=== PATIENT | female | born 1980 | race African-American/Black ===

== ENCOUNTER → 2016-04-11 | Day surgery (SDC) | payer OTHER ==
[~2016-04-11] MED LIST: ACETAMINOPHEN; ALBUTEROL17 GM INH; AMOXICILLIN; AMOXICILLIN PO; FLEXERIL10 MG PO; LORTAB 5/500 TA1 TA1 PO; MEDROL DOSEPAK4 MG DOB; MULTIPLE VITAMI1 T11 PO; NAPROSYN500 MG PO; NEO/POLYMYXIN/H10 ML; PAXIL PO; PRENATAL MULITV1 TAB; PRENATAL MULTIV1 TA1; RELACORE; ROBITUSSIN A-C S5 ML PO; TAMIFLU75 M1 DOB; TRAMADOL HCL50 M2 PO; VICODIN 5/1 TAB 5/50 PO; ZANTREX
--- NOTE | ~2016-04-11 | OR ---
Unit #: [id number] #: [id number] Patient: JERRY DENISE [id number] [address] [place], [place] [address] [id number] O MR#: [id number] NAME: JERRY DENISE ROOM: Date of Procedure: 04/11/2016 Admission Date: 04/11/2016 Surgeon: Pablo Khan III, M.D. : 1980 Attending Physician: Pablo Khan III, M.D. Primary Care Physician: Leesa Lockett M.D. OPERATIVE REPORT PREOPERATIVE DIAGNOSIS Right groin mass. POSTOPERATIVE DIAGNOSIS Right groin mass. PROCEDURE PERFORMED Excisional biopsy of right groin. ANESTHESIA General. SPECIMEN Right groin mass sent to Pathology. COMPLICATIONS None apparent. ESTIMATED BLOOD LOSS Minimal. INDICATIONS FOR PROCEDURE This is a 35-year-old lady, who was seen in the office this week with complaints of right groin pain that radiates down her right leg. She had a CT scan done which showed three similar appearing masses in the right lower quadrant and right groin area. There was one that was palpable. She is here today for excisional biopsy to help establish a diagnosis. DESCRIPTION OF PROCEDURE After consent was obtained, the patient was brought to the operating room and placed in the supine position. General anesthetic was administered. The right groin was prepped and draped in standard surgical fashion. I could palpate the lesion in the midportion of the right groin. I dissected down and identified Hanna's, divided that and then found the mass just deep to the external oblique. I placed a 2-0 silk suture through the mass. The mass itself was approximately 2 cm and fairly smooth. It was densely adherent to little bit of the deeper tissues. I took care not to go too deep to injure any of the structures in the femoral canal. I excised the mass and it was sent to Pathology. I achieved good hemostasis. I closed the deep layer with interrupted 3-0 Vicryl sutures and the skin edges were reapproximated with a running 4-0 Vicryl subcuticular suture. Steri-Strips were then applied. The patient Unit #: [id number] #: [id number] Patient: JERRY DENISE tolerated the procedure without any problems and returned to the recovery room in stable condition. Dictated by... Pablo Khan III, M.D. VCL/dillon TD: 04/11/2016 13:58 JOB #: [id number] OPERATIVE REPORT X Pablo Khan III, MD PROCEDURE OPERATIVE NOTE
== END | disposition home or self-care (01) ==
LOC: CSUR 07:46
DX: N80.8 Other endometriosis (principal); J40 Bronchitis, not specified as acute or chronic; F17.210 Nicotine dependence, cigarettes, uncomplicated; Z87.01 Personal history of pneumonia (recurrent); Z79.899 Other long term (current) drug therapy; Z98.51 Tubal ligation status; Z98.890 Other specified postprocedural states
CPT/HCPCS: 84703; 88305; J0690; J2250; J2405; J3010

== ENCOUNTER 2016-09-12 12:10 | Emergency (ER) | payer OTHER ==
--- NOTE | ~2016-09-12 | CT2 ---
[facility] A Service of [facility] RADIOLOGY TEXT RESULTS PATIENT: JERRY DENISE LOCATION: [facility] : [birth year] UNIT #: [id number] AGE: [address]: SHANAE TOMPKINS SEX: F ORDER DR: [id number] [facility] [address] [place], [place] [address] [id number] MR#: [id number] Acc #: [id number] NAME: JERRY DENISE. : 1980 SEX: F STUDY DATE/TIME: 09/12/2016 15:26 UNIT: [facility] ROOM: STUDY DESCRIPTION: CT Abd and Pelv W Cont Attending Physician: Shanae Tompkins Aprn Ordering Physician: Shanae Tompkins Aprn MEDICAL IMAGING REPORT This report is preliminary unless electronic signature is present EXAM CT abdomen and pelvis with IV contrast HISTORY Pelvic pain today. Endometriosis. Right lower quadrant pain for [address] abdomen and pelvis was performed with IV contrast. This CT exam was performed with one or more of the following radiation dose reduction techniques: automatic exposure control, adjustment of mA and/or kV according to patient size, and iterative reconstruction. FINDINGS CT ABDOMEN: Postop changes at the EG junction and extending into the proximal stomach. The liver, gallbladder, spleen, pancreas, kidneys, and adrenal glands are normal. No ascites. No bowel dilatation. Normal caliber abdominal aorta. CT PELVIS: Soft tissue nodular implant in the right anterior abdominal wall, along the lateral margin of the rectus abdominus muscle, measures 2.5 cm x 2.2 cm, and smaller nodular implant in the medial margin of the left rectus abdominus muscle measures 1.8 cm x 2.4 cm, these are very similar to CT 04/04/2016. Although nonspecific, nodular soft tissue endometriosis implants are a consideration. Other etiologies, including neoplasm, should be considered. The stability favors a benign etiology but these remain indeterminate. Consider biopsy for further characterization. Normal appendix. The uterus is unremarkable. The adnexa are normal. No free fluid. No bowel dilatation. Urinary bladder is decompressed. IMPRESSION [facility] A Service of [facility] RADIOLOGY TEXT RESULTS PATIENT: JERRY DENISE LOCATION: [facility] : 82 UNIT #: [id number] AGE: [address]: SHANAE TOMPKINS SEX: F ORDER DR: 1. No acute findings in the abdomen or pelvis. 2. Normal appendix. 3. Two nodular soft tissue implants in the anterior abdominal wall musculature over the pelvis, 1 to the right of midline and 1 to the left of midline, as detailed above, are stable compared to prior CT 04/04/2016. Although nonspecific, considerations include soft tissue implants from endometriosis, given the patient's history. Other etiologies, including neoplasm, are not excluded. Relative stability favors a benign etiology. Consider further characterization with biopsy as clinically warranted. These may be amendable to ultrasound-guided biopsy. 4. Normal appendix. No acute findings in the remainder of the abdomen or pelvis. Dictated by... Eliud Cunningham M.D. THIS IS AN ELECTRONICALLY VERIFIED REPORT Eliud Cunningham M.D. at 09/12/2016 11:10 PM DFL/shahbaz TD: 09/12/2016 18:42 JOB #: [id number] MEDICAL IMAGING REPORT Page 1 of 1 COPY
[2016-09-12 13:26] LABS: BASOPHIL% 0.6 % (0-2.5); EOSINOPHIL# 0.1 X10e3 (0-0.7); EOSINOPHIL% 1.7 % (0.0-7.0); HEMATOCRIT 38.8 % (35.0-45.0); HEMOGLOBIN 12.6 gm/dL (12.0-16.0); LYMPHOCYTE# 2.4 X10e3 (1.0-3.5); LYMPHOCYTE% 33.7 % (17.0-45.0); MEAN CELL VOLUME 84.6 FL (83-96); MEAN CORPUSCULAR HEMOGLOBIN 27.5 PG (28-34); MEAN CORPUSCULAR HGB CONC 32.5 g/dL (30-36); MEAN PLATELET VOLUME 9.2 FL (6.5-11.5); MONOCYTE# 0.4 X10e3 (0-1.0); MONOCYTE% 5.6 % (3.0-12.0); NEUTROPHIL# 4.2 X10e3 (1.5-7.1); NEUTROPHIL% 58.4 % (40-75); RED BLOOD COUNT 4.58 X10e (3.90-5.30); WHITE BLOOD COUNT 7.1 X10e3 (4.0-10.5)
[2016-09-12 13:47] LABS: DIFF IND NO; PLATELET COUNT 162 X10e3 (140-420)
[2016-09-12 13:52] LABS: ALBUMIN SERUM 3.9 g/dL (3.5-5.0); BILIRUBIN,TOTAL 0.7 mg/dL (0.2-2.0); BUN/CREATININE RATIO 18.57; CALCIUM SERUM 8.6 mg/dL (8.4-10.2); CREATININE SERUM 0.7 mg/dL (0.6-1.4); GLOM FILT RATE Estimated 130.1 mL/min (>60); POTASSIUM 3.6 mmol/L (3.5-5.1); PROTEIN TOTAL SERUM 6.5 g/dL (6.0-8.3)
[2016-09-12 15:15] LABS: URINE SOURCE CLEAN CATCH
[2016-09-12 15:19] LABS: URINE APPEARANCE CLEAR; URINE BILIRUBIN NEG (NEG); URINE BLOOD 1+ (NEG); URINE COLOR DK YELLOW; URINE GLUCOSE NEG (NEG); URINE KETONE NEG (NEG); URINE LEUKOCYTE ESTERASE NEG (NEG); URINE NITRATE NEG (NEG); URINE PH 5.5 (5-8); URINE PROTEIN NEG (NEG); URINE SPECIFIC GRAVITY 1.029 (1.003-1.035)
[2016-09-12 15:22] LABS: URINE BACTERIA AUWI NEG (NEGATIVE); URINE SQUAMOUS EPITHELIAL CELL OCC /[HPF]
[2016-09-12 15:24] LABS: CULTURE INDICATED? NO
[2016-09-16 12:03] LABS: CHLAMYDIA TRACH Not Detected (Not Detected); N GONOR Not Detected (Not Detected)
== END 2016-09-12 16:34 | disposition home or self-care (01) ==
LOC: CED 12:10 → CFTX 12:10
PROVIDERS: Nurse Practitioner Family
DX: R10.2 Pelvic and perineal pain (principal); F17.210 Nicotine dependence, cigarettes, uncomplicated
CPT/HCPCS: 36415; 74177; 80053; 81003; 83690; 84703; 85025; 87491; 87591; 87808; 87905; 96374; 99284; J1885; Q9967